=== PATIENT | male | born 1950 | race Caucasian/White ===

== ENCOUNTER → 2016-10-05 | Outpatient (CLI) | payer MEDICARE, BC ==
[~2016-10-05] MED LIST: CATALYN PO; COLACE100 MG PO; FISH OIL1000 MG PO; JUICE PLUS PO; LEVAQUIN500 MG PO; NEOSPORIN1 PKT TOP; NORCO 5-325 MG1 TAB PO; ZYLOPRIM300 MG PO
[2016-10-05 10:11] LABS: CREATININE 1.1 mg/dL (0.6-1.3); ESTIMATED GFR (MDRD EQUATION) > 60
== END | disposition disaster alternative care site (69) ==
LOC: GRAD 10-04 10:00
PROVIDERS: Registered Nurse Medical-Surgical
DX: C61 Malignant neoplasm of prostate (principal); K76.0 Fatty (change of) liver, not elsewhere classified; Z90.79 Acquired absence of other genital organ(s)
CPT/HCPCS: A9503; Q9967